=== PATIENT | male | born 1945 | race Caucasian/White ===

== ENCOUNTER 2017-05-29 09:55 | Day surgery (SDC) | payer OTHER ==
[2017-05-29] MEDS ORDERED: NS 500 ML IV 500 ML IV ONE (10:44)
[2017-05-29] MEDS ORDERED: TETRACAINE 0.5% OPHTH 1 DOSE AFFEYE ONE ×4 (11:17→13:49)
[2017-05-29] MEDS ORDERED: VIGAMOX 0.5% OPHTH 1 DOSE AFFEYE ONE ×5 (11:20→14:02)
[2017-05-29] MEDS ORDERED: PROLENSA OPHTH 1 DOSE AFFEYE ONE (11:31)
[2017-05-29] MEDS ORDERED: ALPHAGAN-P OPHTH 1 DOSE AFFEYE ONE (11:32)
[2017-05-29] MEDS ORDERED: MYDRIACIL OPHTH 1 DOSE AFFEYE ONE ×2 (11:33→11:34)
[2017-05-29] MEDS ORDERED: CYCLOGYL 1% OPHTH 1 DOSE OP ONE ×2 (11:33→11:34)
[2017-05-29] MEDS ORDERED: AK-DILATE 2.5% OPHTH 1 DOSE OP ONE ×2 (11:33→11:34)
[2017-05-29] MEDS ORDERED: BETADINE OPHTH SOLN 5% EACHEYE ONE (13:22)
[2017-05-29] MEDS ORDERED: ADRENALINE CHL INJ IJ ONE ×2 (13:44→13:49)
[2017-05-29] MEDS ORDERED: XYLOCAINE-MPF 1% IJ ONE ×2 (13:44→13:49)
[2017-05-29] MEDS ORDERED: DUOVISC IO ONE ×2 (13:44→13:49)
[2017-05-29] MEDS ORDERED: BSS OPHTH (PLAIN) 500 ML IR ONE ×2 (13:45)
[2017-05-29 14:19] VITALS: BP 168/86
== END 2017-05-29 14:23 | disposition home or self-care (01) ==
LOC: SURG1 09:55
PROVIDERS: ATTEND Ophthalmology
PROC: 08RK3JZ Replacement of Left Lens with Synthetic Substitute, Percutaneous Approach (ICD-10-PCS; principal; 2017-05-29 18:45)
PROC: 08DK3ZZ Extraction of Left Lens, Percutaneous Approach (ICD-10-PCS; principal; 2017-05-29 18:45)
DX: H25.12 Age-related nuclear cataract, left eye (principal); H25.012 Cortical age-related cataract, left eye; H52.222 Regular astigmatism, left eye
CPT/HCPCS: 99100; A4217; J0170

== ENCOUNTER 2017-06-12 08:33 | Day surgery (SDC) | payer OTHER ==
[2017-06-12] MEDS ORDERED: NS 500 ML IV 500 ML IV ONE (08:48)
[2017-06-12] MEDS ORDERED: TETRACAINE 0.5% OPHTH 1 DOSE AFFEYE ONE ×3 (09:20→11:54)
[2017-06-12] MEDS ORDERED: VIGAMOX 0.5% OPHTH 1 DOSE AFFEYE ONE ×5 (09:23→12:13)
[2017-06-12] MEDS ORDERED: PROLENSA OPHTH 1 DOSE AFFEYE ONE (09:35)
[2017-06-12] MEDS ORDERED: ALPHAGAN-P OPHTH 1 DOSE AFFEYE ONE (09:37)
[2017-06-12] MEDS ORDERED: AK-DILATE 2.5% OPHTH 1 DOSE OP ONE ×6 (09:39→09:49)
[2017-06-12] MEDS ORDERED: CYCLOGYL 1% OPHTH 1 DOSE OP ONE ×6 (09:39→09:49)
[2017-06-12] MEDS ORDERED: MYDRIACIL OPHTH 1 DOSE AFFEYE ONE ×6 (09:39→09:49)
[2017-06-12] MEDS ORDERED: DIPRIVAN VIAL ONE (10:17)
[2017-06-12] MEDS ORDERED: BETADINE OPHTH SOLN 5% EACHEYE ONE (11:48)
[2017-06-12] MEDS ORDERED: DUOVISC IO ONE (11:54)
[2017-06-12] MEDS ORDERED: BSS OPHTH (PLAIN) 500 ML with VANCOMYCIN HCL 500 MG VIAL 25 MG, ADRENALINE CHL INJ 1 MG IR ONE ×3 (11:54)
[2017-06-12] MEDS ORDERED: ADRENALINE CHL INJ IJ ONE (11:54)
[2017-06-12] MEDS ORDERED: XYLOCAINE-MPF 1% IJ ONE (11:54)
[2017-06-12 13:01] VITALS: BP 160/90
== END 2017-06-12 12:40 | disposition home or self-care (01) ==
LOC: SURG1 08:33
PROVIDERS: ATTEND Ophthalmology
PROC: 08DJ3ZZ Extraction of Right Lens, Percutaneous Approach (ICD-10-PCS; principal; 2017-06-12 13:30)
PROC: 08RJ3JZ Replacement of Right Lens with Synthetic Substitute, Percutaneous Approach (ICD-10-PCS; principal; 2017-06-12 13:30)
DX: H25.11 Age-related nuclear cataract, right eye (principal); H25.011 Cortical age-related cataract, right eye; H52.221 Regular astigmatism, right eye
CPT/HCPCS: 99100; A4217; J0170; J3370; J3490